=== PATIENT | male | born 1975 | race Hispanic/Latino ===

== ENCOUNTER 2024-10-14 08:54 | Emergency (ER) | payer SELFPAY ==
[2024-10-14] MEDS ORDERED: fentaNYL 50 mcg/mL 1 mL Vial ONE ×2 (09:36→09:56)
== END 2024-10-14 11:06 | disposition home or self-care (01) ==
LOC: BURERS 08:54
DX: S43.005A Unspecified dislocation of left shoulder joint, initial encounter (principal); W06.XXXA Fall from bed, initial encounter
CPT/HCPCS: 23650; J3010